=== PATIENT | female | born 1950 | race Caucasian/White ===

== ENCOUNTER 2017-01-27 16:33 | Emergency (ER) | payer BC, MEDICAID, OTHER ==
[~2017-01-27] VITALS: Ht 177.8 cm; Wt 68.0 kg
[~2017-01-27 16:33] MED LIST: DIAZ10TA PO; FLUO40CA8 PO; METF500T4 PO; MORP30TA PO; TRAZ300T2 PO; TRIA0.252 PO
--- NOTE | 2017-01-27 16:55 | NUR ---
DR CHILDRESS AT THE BEDSIDE FOR EVAL AND EXAM.
--- NOTE | 2017-01-27 17:56 | NUR ---
Patient discharged to home in stable conditon. Written and verbal after care instructions given. Patient verbalizes understanding of instructions.
[2017-01-27 17:57] VITALS: BP 112/64
== END 2017-01-27 17:58 | disposition home or self-care (01) ==
LOC: ER 16:34
DX: S42.92XA Fracture of left shoulder girdle, part unspecified, initial encounter for closed fracture (principal); E11.9 Type 2 diabetes mellitus without complications; Z88.1 Allergy status to other antibiotic agents; Z88.6 Allergy status to analgesic agent; W01.0XXA Fall on same level from slipping, tripping and stumbling without subsequent striking against object, initial encounter; Y93.89 Activity, other specified; Y92.89 Other specified places as the place of occurrence of the external cause; Y99.8 Other external cause status
CPT/HCPCS: 73030; A4663

== ENCOUNTER 2018-05-17 00:14 | Emergency (ER) | payer MEDICARE, MEDICAID ==
[~2018-05-17] VITALS: Ht 175.3 cm; Wt 64.0 kg
[~2018-05-17 00:14] MED LIST changes: +METF-440 PO; -METF500T4 PO
[2018-05-17] MEDS ORDERED: MAGNESIUM CITRATE 296 ML BOTTLE PO ONE (01:00)
[2018-05-17] MEDS ORDERED: MAGNESIUM HYDROXIDE 30 ML LIQUID UDC PO ONE (01:00)
[2018-05-17] MEDS ORDERED: DOCUSATE SODIUM 100 MG CAPSULE PO ONE ×2 (01:00→01:02)
[2018-05-17] MEDS ORDERED: MAGNESIUM HYDROXIDE 30 ML LIQUID UDC ONE (01:02)
[2018-05-17] MEDS ORDERED: MAGNESIUM CITRATE 296 ML BOTTLE ONE (01:03)
--- NOTE | 2018-05-17 01:10 | NUR ---
Patient discharged to home in stable conditon. Written and verbal after care instructions given. Patient verbalizes understanding of instructions.
== END 2018-05-17 01:12 | disposition home or self-care (01) ==
LOC: ER 00:15
DX: K92.1 Melena (principal); K64.9 Unspecified hemorrhoids; K59.00 Constipation, unspecified; Z71.6 Tobacco abuse counseling; E10.9 Type 1 diabetes mellitus without complications; F17.290 Nicotine dependence, other tobacco product, uncomplicated; Z88.1 Allergy status to other antibiotic agents; Z88.8 Allergy status to other drugs, medicaments and biological substances; Z79.891 Long term (current) use of opiate analgesic; Z79.899 Other long term (current) drug therapy
CPT/HCPCS: A4663

== ENCOUNTER 2018-06-08 15:44 | Emergency (ER) | payer MEDICAID, MEDICARE ==
[~2018-06-08] VITALS: Ht 180.3 cm; Wt 60.8 kg
[~2018-06-08 15:44] MED LIST changes: -FLUO40CA8 PO; -TRIA0.252 PO
[2018-06-08] MEDS ORDERED: ONDANSETRON 4 MG/2 ML VIAL IV ONE (16:15)
[2018-06-08] MEDS ORDERED: MORPHINE SULFATE 2 MG/1 ML DISP.SYRIN IV ONE (16:15)
[2018-06-08] MEDS ORDERED: IV NORMAL SALINE 1000 ML BAG IV ONE (16:15)
[2018-06-08] MEDS ORDERED: ONDANSETRON 4 MG/2 ML VIAL ONE (16:25)
[2018-06-08] MEDS ORDERED: MORPHINE SULFATE 2 MG/1 ML DISP.SYRIN ONE (16:26)
[2018-06-08 16:30] LABS: BASOPHILS # (AUTO) 0.1 K/uL (0.0-8.0); BASOPHILS % (AUTO) 0.7 % (0.0-2.0); EOSINOPHILS # (AUTO) 0.1 K/uL (0.0-0.7); HEMATOCRIT 37.7 % (31.2-41.9); HEMOGLOBIN 12.6 g/dL (10.9-14.3); LYMPHOCYTES # (AUTO) 3.8 K/uL (20.0-40.0); LYMPHOCYTES % (AUTO) 32.5 % (20.5-51.5); MEAN CORPUSCULAR HEMOGLOBIN 31.3 uug (24.7-32.8); MEAN CORPUSCULAR HGB CONC 33 g/dL (32.3-35.6); MEAN CORPUSCULAR VOLUME 93.9 fL (75.5-95.3); MONOCYTES # (AUTO) 0.9 K/uL (2.0-10.0); MONOCYTES % (AUTO) 7.4 % (0.0-11.0); NEUTROPHILS # (AUTO) 6.8 K/uL (1.8-8.9); NEUTROPHILS % (AUTO) 58.4 % (38.5-71.5); PLATELET COUNT (AUTO) 240 K/uL (179-408); RED BLOOD CELL COUNT(AUTO) 4.02 MIL/uL (3.63-4.92); WHITE BLOOD COUNT (AUTO) 11.6 K/uL (3.8-11.8)
[2018-06-08 16:39] LABS: CREATININE 0.8 mg/dL (0.6-1.3); POTASSIUM 3.8 mmol/L (3.5-5.1)
[2018-06-08 16:45] LABS: BILIRUBIN,DIRECT 0.1 mg/dL (0.0-0.2); BILIRUBIN,TOTAL 0.3 mg/dL (0.2-1.0); TOTAL PROTEIN, SERUM 7.6 g/dL (6.4-8.2)
[2018-06-08 17:07] LABS: *BILIRUBIN,URIN NEGATIVE (NEGATIVE); *CLARITY,URINE CLEAR (CLEAR); *COLOR,URINE YELLOW (YELLOW); *KETONES,URINE NEGATIVE (NEGATIVE); *UROBILINOGEN,URINE 0.2 E.U./dl (NORMAL); LEUKOCYTE ESTERASE ,URINE NEGATIVE (NEGATIVE); NITRITE, URINE NEGATIVE (NEGATIVE); UGLUCOSE NEGATIVE (NEGATIVE)
[2018-06-08 17:08] LABS: *BLOOD, URINE TRACE (NEGATIVE)
[2018-06-08 17:13] LABS: BACTERIA,URINE FEW /HPF (NONE SEEN); RBC,URINE 0-3 /HPF (0-3); SQUAMOUS EPITHELIAL CELL,UR FEW /HPF (NONE SEEN); WBC,URINE 0-3 /HPF (0-3)
--- NOTE | 2018-06-08 17:40 | NUR ---
pt deneis nausea at this point. hospital sandwich and juice provided. pt eating with good apetite.
[2018-06-08 17:41] VITALS: BP 101/51
--- NOTE | 2018-06-08 18:10 | NUR ---
Patient discharged to home in stable conditon. Written and verbal after care instructions given. Patient verbalizes understanding of instructions.pt walks in steady gait. pt says feels way better. pt not driving.
== END 2018-06-08 18:11 | disposition home or self-care (01) ==
LOC: ER 15:44
DX: F11.23 Opioid dependence with withdrawal (principal); E10.9 Type 1 diabetes mellitus without complications; G89.29 Other chronic pain; M54.9 Dorsalgia, unspecified; F17.200 Nicotine dependence, unspecified, uncomplicated; Z88.1 Allergy status to other antibiotic agents; Z88.8 Allergy status to other drugs, medicaments and biological substances; Z79.899 Other long term (current) drug therapy
CPT/HCPCS: 36415; 71045; 80048; 80076; 81001; 83690; 84484; 85025; 93005; 96361; 96374; 96375; 99284; J2270; J2405; 70030-TC; A4663; J7030

== ENCOUNTER 2018-06-24 10:38 | Emergency (ER) | payer MEDICARE ==
[~2018-06-24] VITALS: Ht 180.3 cm; Wt 61.2 kg
--- NOTE | 2018-06-24 10:44 | NUR ---
PT A/OX4, PRESENTS TO THE ER C/O CHRONIC BACK PAIN. PT STATES SHE CURRENTLY TAKES MORPHINE FOR HER CHRONIC PAIN BUT RAN OUT OF PRESCRIPTION AND HAS NOT BEEN ABLE TO GO SEE HER PCP IN [place]. VSS. PT DOES NOT APPEAR TO BE IN ANY APPARENT DISTRESS. PT IS ABLE TO SELF-AMBULATE W/O DIFFICULTY. ER MD AT BEDSIDE FOR MSE.
--- NOTE | 2018-06-24 11:07 | NUR ---
Patient discharged to home in stable conditon. Written and verbal after care instructions given. Patient verbalizes understanding of instructions. ALL BELONGINGS W/ PT. PT SELF-AMBULATED W/O DIFFICULTY.
[2018-06-24 11:08] VITALS: BP 116/63
== END 2018-06-24 11:09 | disposition home or self-care (01) ==
LOC: ER 10:38
DX: G89.29 Other chronic pain (principal); M54.9 Dorsalgia, unspecified; Z76.0 Encounter for issue of repeat prescription; E11.9 Type 2 diabetes mellitus without complications; F17.200 Nicotine dependence, unspecified, uncomplicated; Z88.8 Allergy status to other drugs, medicaments and biological substances; Z88.1 Allergy status to other antibiotic agents; Z79.899 Other long term (current) drug therapy
CPT/HCPCS: A4663

== ENCOUNTER 2023-12-03 13:31 | Emergency (ER) | payer MEDICARE, OTHER ==
[~2023-12-03] VITALS: Ht 175.3 cm; Wt 72.6 kg
[2023-12-03] MEDS: VANCOMYCIN IV 1,000 MG in IV DEXTROSE 5% 250 ML IV ONE (13:45)
[2023-12-03] MEDS ORDERED: CEFTRIAXONE /D5W 50ML IVPB **ER PYXIS IV ONE (13:59)
[2023-12-03] MEDS ORDERED: VANCOMYCIN IV 200 ML ONE (13:59)
[2023-12-03] MEDS ORDERED: diphenhydrAMINE 50 MG/1 ML VIAL ONE ×2 (14:00→17:07)
[2023-12-03] MEDS ORDERED: HALOPERIDOL LACTATE 5 MG/1 ML VIAL ONE ×2 (14:00→17:07)
[2023-12-03] MEDS ORDERED: LORAZEPAM 2 MG/1 ML VIAL ONE ×2 (14:01→17:08)
[2023-12-03 14:02] LABS: BASOPHILS % (AUTO) 0.1 % (0.0-2.0); CALCIUM 9.5 mg/dL (8.5-10.1); CARBON DIOXIDE 28 mmol/L (21-32); CHLORIDE 106 mmol/L (98-107); CREATININE 1.7 mg/dL (0.6-1.3); EOSINOPHILS % (AUTO) 0.3 % (0.0-7.0); GLUCOSE 139 mg/dL (74-106); HEMATOCRIT 37.4 % (31.2-41.9); HEMOGLOBIN 12.3 g/dL (10.9-14.3); LYMPHOCYTES % (AUTO) 13.8 % (20.5-51.5); MEAN CORPUSCULAR HEMOGLOBIN 31.4 uug (24.7-32.8); MEAN CORPUSCULAR HGB CONC 33 g/dL (32.3-35.6); MEAN CORPUSCULAR VOLUME 95.6 fL (75.5-95.3); MONOCYTES # (AUTO) 0.9 K/uL (0.1-1.30); MONOCYTES % (AUTO) 5.8 % (0.0-11.0); NEUTROPHILS # (AUTO) 11.8 K/uL (1.8-8.9); PLATELET COUNT (AUTO) 251 K/uL (179-408); POTASSIUM 4.8 mmol/L (3.5-5.1); RED BLOOD CELL COUNT(AUTO) 3.91 MIL/uL (3.63-4.92); RED CELL DISTRIBUTION WIDTH 15.2 % (12.3-17.7); SODIUM SERUM 145 mmol/L (136-145); UREA NITROGEN, BLOOD 35 mg/dL (7-18); WHITE BLOOD COUNT (AUTO) 14.7 K/uL (3.8-11.8)
[2023-12-03] MEDS: IV NORMAL SALINE 1000 ML BAG IV ONE (14:05)
[2023-12-03] MEDS: diphenhydrAMINE 50 MG/1 ML VIAL IV ONE ×2 (14:05→17:15)
[2023-12-03] MEDS: HALOPERIDOL LACTATE 5 MG/1 ML VIAL IV ONE ×2 (14:05→17:15)
[2023-12-03] MEDS: LORAZEPAM 2 MG/1 ML VIAL IV ONE ×2 (14:05→17:15)
[2023-12-03 14:07] LABS: *BILIRUBIN,URIN NEGATIVE (NEGATIVE); *BLOOD, URINE NEGATIVE (NEGATIVE); *CLARITY,URINE CLEAR (CLEAR); *COLOR,URINE YELLOW (YELLOW); *KETONES,URINE NEGATIVE (NEGATIVE); *PROTEIN,URINE NEGATIVE (NEGATIVE); *UROBILINOGEN,URINE 0.2 E.U./dl (NORMAL); LEUKOCYTE ESTERASE ,URINE NEGATIVE (NEGATIVE); NITRITE, URINE POSITIVE (NEGATIVE); UGLUCOSE NEGATIVE (NEGATIVE)
[2023-12-03 14:08] LABS: DIFFERENTIAL COMMENT 1
[2023-12-03 14:09] LABS: BACTERIA,URINE MODERATE /HPF (NONE SEEN); SQUAMOUS EPITHELIAL CELL,UR MODERATE /HPF (NONE SEEN)
[2023-12-03] MEDS: CEFTRIAXONE 1 G in IV DEXTROSE 5% 50 ML IV ONE (14:20)
[2023-12-03 14:27] LABS: ALANINE AMINOTRANSFERASE 25 U/L (14-59); ALBUMIN 3.8 g/dL (3.4-5.0); ALKALINE PHOSPHATASE 78 U/L (50-136); ASPARTATE AMINOTRANSFERASE 17 U/L (15-37); BILIRUBIN,DIRECT 0.1 mg/dL (0.0-0.2); BILIRUBIN,TOTAL 0.4 mg/dL (0.2-1.0); NT-PRO BNP 201 pg/mL (0-125); TOTAL PROTEIN, SERUM 7.3 g/dL (6.4-8.2)
[2023-12-03] MEDS ORDERED: OXYC10TA49 PO (18:16)
[2023-12-03] MEDS ORDERED: TEMA30CA PO (18:16)
[2023-12-03] MEDS ORDERED: VITAMIN D3 (18:16)
[2023-12-03] MEDS ORDERED: ROSU5TAB13 PO (18:16)
[2023-12-03] MEDS ORDERED: METF-440 PO (18:16)
[2023-12-03] MEDS ORDERED: MEMA10TA PO (18:16)
[2023-12-03] MEDS ORDERED: IRON (18:16)
[2023-12-04 01:56] VITALS: O2SAT 98
== END 2023-12-04 02:56 | disposition short-term general hospital (02) ==
LOC: ER 13:31
DX: R41.82 Altered mental status, unspecified (principal); E11.9 Type 2 diabetes mellitus without complications; F32.A Depression, unspecified; G30.9 Alzheimer's disease, unspecified; F02.80 Dementia in other diseases classified elsewhere, unspecified severity, without behavioral disturbance, psychotic disturbance, mood disturbance, and anxiety; F17.200 Nicotine dependence, unspecified, uncomplicated; Z79.84 Long term (current) use of oral hypoglycemic drugs; Z79.899 Other long term (current) drug therapy; Z20.822 Contact with and (suspected) exposure to COVID-19; Z98.890 Other specified postprocedural states; Z88.1 Allergy status to other antibiotic agents
CPT/HCPCS: 99285; 70450; 96365; 96375; 96366; 71045; 87426; 80076; 80048; 81001; 83880; 85025; 84145; 85730; 87040 ×2; 84484; 36415; 93005; 71250; 96368; 96376; 83605; 87086; J0696; J1200 ×2; J1630 ×2; J2060 ×2; J3370; J7040; A4606; A4663